=== PATIENT | female | born 1940 | race Caucasian/White ===

== ENCOUNTER 2020-02-04 14:48 | Inpatient (IN) | payer MEDICARE, OTHER ==
[~2020-02-04 14:48] MED LIST: Iopamidol-370 76% 500 ML 1 ML ONE
[2020-02-04 15:50] LABS: Bacteria/HPF None Seen HPF (None Seen); Bilirubin Negative (Negative); Blood, Urine Trace (Negative); Clarity Clear (Clear); Glucose, Urine (Dipstick) Normal (Negative); Leukocyte Negative Leu/uL (Negative); Nitrite Negative (Negative); Protein, Urine (Dipstick) Negative (Neg-Trace); RBC/HPF 0-3 HPF (0-3); Squamous Epithelial None Seen HPF (0-3); Urobilinogen Normal mg/dL (Less than 2); WBC/HPF 0-3 HPF (0-3)
[2020-02-04 15:50] LABS: #Basophils 0.1 thou/uL (0.0-0.2); #Lymphocytes 3.6 thou/uL (1.20-3.40); #Monocytes 1.2 thou/uL (0.11-0.59); #Neutrophils 12.1 thou/uL (1.40-6.50); %Basophils 0.4 % (0.0-1.0); %Lymphocytes 21.2 % (21.0-51.0); %Monocytes 7.3 % (0.0-10.0); %Neutrophils 71.1 % (42.0-75.0); Hemoglobin 13.1 g/dL (12.0-16.0); Mean Corpuscular HGB CONC 32.1 g/dL (32.0-36.0); Mean Corpuscular Hemoglobin 30.3 pg (27.0-31.0); Mean Corpuscular Volume 94.4 fL (78.0-98.0); Mean Platelet Volume 8.3 fL (7.4-10.4); Platelet Count 195 thou/uL (130-400); RBC Distribution Width 13.1 % (11.5-14.5); Red Blood Cell (RBC) Count 4.31 mill/uL (4.20-5.40)
[2020-02-04 16:11] LABS: ALT (SGPT) 13 U/L (8-55); AST (SGOT) 18 U/L (5-34); Albumin 4.3 g/dL (3.4-4.8); Alkaline Phosphatase 93 U/L (40-110); Anion Gap 11 mmol/L (10-20); BUN (Urea Nitrogen) 19 mg/dL (9.8-20.1); Bilirubin, Total 0.6 mg/dL (0.2-1.2); Calc. Creatinine Clearance 0 mL/min (70-130); Calcium 9.6 mg/dL (7.8-10.44); Carbon Dioxide 27 mmol/L (23-31); Chloride 104 mmol/L (98-107); Estimated GFR-MDRD 58; Globulin 2.6 g/dL (2.4-3.5); Glucose 86 mg/dL (83-110); Lipase 17 U/L (8-78); Protein, Total 6.9 g/dL (6.0-8.3); Sodium 138 mmol/L (136-145)
[2020-02-04] MEDS ORDERED: Acetaminophen 325 MG TAB PO PRN (16:26)
[2020-02-04] MEDS ORDERED: Ondansetron PF 4 MG/2 ML Vial IVP PRN (16:26)
[2020-02-04] MEDS ORDERED: Guaifenesin DM 100-10/5 ML UDCUP PO PRN (16:26)
[2020-02-04] MEDS ORDERED: Sodium Chloride 0.9% 1,000 ML IV SCH (16:30)
[2020-02-04] MEDS ORDERED: Morphine 4 MG/ML VIAL ONE (16:35)
--- NOTE | 2020-02-04 17:43 | HP ---
REASON FOR ADMISSION: GI bleed, possible diverticulitis. HISTORY OF PRESENTING ILLNESS: The patient gives history of having abdominal colic off and on in the left upper and lower quadrant areas from last 2 days. She had one episode of akil blood in the stool yesterday and today, she had another episode of dark blood in the stool. She had gone to Urgent Care yesterday and saw Dr. Tamika Solis. She had a COVID-19 PCR tested, the results of which is not available at present. The patient has chronic cough, but no new symptoms of expectoration or fever. She has had prior colonoscopy done by Dr. Canales 5 years back, where she was found to have had polyps. No complaints of chest pain, palpitation, PND, or orthopnea. She normally ambulates by herself. PAST MEDICAL AND SURGICAL HISTORY: History of spastic colon, possible diverticulitis in the past, dyslipidemia, left ovarian cancer with hysterectomy and bilateral oophorectomy, appendectomy, and tonsillectomy. CURRENT MEDICATIONS: The patient is on cyclobenzaprine 10 mg p.o. daily p.r.n., lovastatin 40 mg p.o. daily, dicyclomine 10 mg twice daily p.r.n., calcium with vitamin D one tablet daily, Protonix 40 mg daily, and citalopram 10 mg daily. ALLERGIES: NO KNOWN DRUG ALLERGIES. PERSONAL HISTORY: Does not abuse alcohol or drugs. No history of smoking. FAMILY HISTORY: Father of lung cancer. Mother has had history of CVA and pacemaker. CODE STATUS: Full. Power of shingle trimmer is her daughter, Ms. Aurora Ruvalcaba. REVIEW OF SYSTEMS: CONSTITUTIONAL: Negative for weight loss or gain, ability to conduct usual activities. SKIN: Negative for rash, itching. EYES: Negative for double vision, pain. ENT/MOUTH: Negative for nose bleeding, neck stiffness, pain, tenderness. CARDIOVASCULAR: Negative for palpitations, dyspnea on exertion, orthopnea. RESPIRATORY: Negative for shortness of breath, wheezing, cough, hemoptysis, fever or night sweats. GASTROINTESTINAL: Negative for poor appetite, abdominal pain, heartburn, nausea, vomiting, constipation, or diarrhea. GENITOURINARY: Negative for urgency, frequency, dysuria, nocturia. MUSCULOSKELETAL: Negative for pain, swelling. NEUROLOGIC/PSYCHIATRIC: Negative for anxiety, depression. ALLERGY/IMMUNOLOGIC: Negative for skin rash, bleeding tendency. PHYSICAL EXAMINATION: GENERAL: The patient is a 79-year-old female, who is currently not in any acute distress. VITAL SIGNS: Blood pressure 124/70, pulse 90 per minute, respiratory rate 18 per minute, temperature 98.5 degrees Fahrenheit, and saturating 95% on room air. NECK: Supple. No elevated JVD. HEENT: Eyes; extraocular muscles are intact. Pupils reacting to light. Oral cavity, mucous membranes are dry. No exudates or congestion. CARDIOVASCULAR: S1 and S2 heard, regular rhythm. RESPIRATORY: Air entry 1+ bilateral. No rales or rhonchi. ABDOMEN: Soft. Bowel sounds heard. Mild tenderness on deep palpation in the left lower quadrant and left upper quadrant. No rigidity or guarding. EXTREMITIES: No peripheral edema or calf tenderness. VASCULAR: Peripheral pulses 1+ bilateral. No ischemic ulcerations or gangrene. CENTRAL NERVOUS SYSTEM: No gross focal motor deficits noted. The patient is alert, awake, and oriented well. PSYCHIATRIC: The patient's mood is euthymic. No hallucinations or delusions. LABORATORY DATA: White count of 17, hemoglobin and hematocrit of 13 and 40, platelet count 195, MCV is 94 with 71% neutrophils. Electrolytes stable. BUN 19, creatinine 0.9, and serum glucose 86. Liver enzymes within normal limits. Albumin is 4.3. Stool occult blood is positive. CLINICAL IMPRESSION AND PLAN: The patient will be admitted to medical floor for 2 episodes of GI bleed with abdominal colic, likely diverticulitis. We will keep her on clear liquid diet. Repeat blood work in the morning. She will be on Protonix 40 mg IV q.12 hourly and we will also add ciprofloxacin and Flagyl. Stool studies including C diff and cultures will be obtained. We will obtain consultation with Dr. Roman, who is on-call for GI. We will continue her citalopram, Flexeril, and lovastatin as before. Job ID: [id number]
[2020-02-04 18:01] VITALS: BMI 18.8
[2020-02-04] MEDS: Pantoprazole 40 MG VIAL IVP SCH (18:11)
--- NOTE | 2020-02-04 19:38 | CT ---
CT ABDOMEN AND PELVIS 02/04/20 COMPARISON: None. HISTORY: Diverticulitis. GI bleeding, abdominal pain. TECHNIQUE: Axial CT imaging at 5 mm intervals from lung bases through pubic symphysis with oral contrast, with a nd without IV contrast. Coronal and sagittal reformatted imaging obtained. FINDINGS: The imaged lung bases appear grossly unremarkable. No free intraperitoneal air. Noncontrast enhanced CT imaging demonstrates no evidence for nephrolithiasis. The gallbladder appears grossly unremarkable. The liver, partially imaged spleen, the pancreas, the a drenal glands, and bilateral kidneys demonstrate no acute findings. Scattered postoperative clips are noted within the lower abdomen/pelvis. There is diverticulosis of the sigmoid colon without evidence for diverticulitis. There is a focal a jonathan of bowel wall thickening involving the colon within the descending colon just distal to the splen ic flexure. The inflamed and thick walled colon in this region measures 8 cm in length. No associated obstruction or abscess. There is scattered atherosclerotic calcification of the abdominal aorta and its branches. No lymphadenopathy is seen within the abdomen or pelvis. Review of the osseous structures demonstrates multilevel lower lumbar spine facet hypertrophy. Mild a nterolisthesis of L4 on L5 noted measuring in the 5 mm range. No worrisome lytic or blastic bone lesi on. IMPRESSION: There is a segment of thick walled colon within the proximal ascending colon with adjacent inflammato ry fat stranding suggesting a focal area of colitis. Underlying mass lesion cannot be excluded and th us, follow-up direct visualization with colonoscopy following resolution of the acute symptoms is adv ised. No evidence for free intraperitoneal air, bowel obstruction, or abscess formation. POS: [facility]
[2020-02-04] MEDS: Atorvastatin Calcium 10 MG TAB PO SCH (21:42)
[2020-02-04] MEDS: Cyclobenzaprine 10 MG TAB PO SCH (21:42)
[2020-02-04] MEDS: Dicyclomine 10 MG CAP PO SCH (21:42)
[2020-02-04] MEDS: metroNIDAZOLE 500 MG in Premix Bag 1 BAG IVPB SCH (22:36)
[2020-02-04] MEDS ORDERED: Morphine 2 MG/ML SYRINGE SLOW IVP PRN (23:40)
[2020-02-05] MEDS: Pantoprazole 40 MG VIAL IVP SCH ×2 (05:21→16:43)
[2020-02-05 05:24] LABS: #Basophils 0.1 thou/uL (0.0-0.2); #Lymphocytes 2.4 thou/uL (1.20-3.40); #Neutrophils 7.4 thou/uL (1.40-6.50); %Basophils 0.7 % (0.0-1.0); %Eosinophils 0.1 % (0.0-10.0); %Lymphocytes 21.9 % (21.0-51.0); %Monocytes 8.9 % (0.0-10.0); %Neutrophils 68.5 % (42.0-75.0); Hemoglobin 11.1 g/dL (12.0-16.0); Mean Corpuscular HGB CONC 31.8 g/dL (32.0-36.0); Mean Corpuscular Hemoglobin 29.9 pg (27.0-31.0); Mean Platelet Volume 8.5 fL (7.4-10.4); Platelet Count 167 thou/uL (130-400); RBC Distribution Width 12.9 % (11.5-14.5); Red Blood Cell (RBC) Count 3.69 mill/uL (4.20-5.40); White Blood Cell (WBC) Count 10.8 thou/uL (4.8-10.8)
[2020-02-05] MEDS: metroNIDAZOLE 500 MG in Premix Bag 1 BAG IVPB SCH ×3 (05:24→22:22)
[2020-02-05 05:35] LABS: Anion Gap 10 mmol/L (10-20); BUN (Urea Nitrogen) 13 mg/dL (9.8-20.1); Calc. Creatinine Clearance 46 mL/min (70-130); Calcium 8.7 mg/dL (7.8-10.44); Carbon Dioxide 25 mmol/L (23-31); Chloride 105 mmol/L (98-107); Estimated GFR-MDRD 74; Glucose 92 mg/dL (83-110); Potassium 4.1 mmol/L (3.5-5.1); Sodium 136 mmol/L (136-145)
[2020-02-05] MEDS ORDERED: Sodium Chloride 0.9% 1,000 ML IV SCH (06:15)
[2020-02-05] MEDS ORDERED: Prevnar 13-Val Conj/PF 0.5 ML SYRINGE IM ONE (09:00)
[2020-02-05] MEDS: Escitalopram Oxalate 10 mg Tablet PO SCH (09:18)
[2020-02-05] MEDS: Dicyclomine 10 MG CAP PO SCH ×2 (09:19→21:33)
--- NOTE | 2020-02-05 11:38 | PDOC.HOSPP ---
- Subjective Encounter Date: 02/05/20 Encounter Time: 11:15 Subjective: has mild abd pain in left upper quadrant, no nausea is tolerating liq diet no cough or expectoration, no fever - Objective Vital Signs & Weight: Vital Signs (12 hours) Temp Pulse Resp BP BP Pulse Ox 02/05/20 09:42 97.6 F 68 18 96/68 96 02/05/20 08:00 63 101/50 L 02/05/20 07:05 70 88/53 L 02/05/20 05:55 72 93/57 L 02/05/20 05:41 97.8 F 69 16 87/55 L 96 02/05/20 02:15 97.9 F 75 16 93/54 L 96 Weight Weight 106 lb I&O: 02/04/20 02/05/20 02/06/20 06:59 06:59 06:59 Intake Total 2000 Output Total 900 Balance 1100 Result Diagrams: 02/05/20 04:58 02/05/20 04:58 Hospitalist ROS - Medication Medications: Active Medications Generic Name Dose Route Start Last Admin Trade Name Daydayq PRN Reason Stop Dose Admin Atorvastatin Calcium 10 mg 02/04/20 21:00 02/04/20 21:42 Lipitor PO 10 mg HS LISA Administration Cyclobenzaprine HCl 10 mg 02/04/20 21:00 02/04/20 21:42 Flexeril PO 10 mg HS LISA Administration Dicyclomine HCl 10 mg 02/04/20 21:00 02/05/20 09:19 Bentyl PO 10 mg BID LISA Administration Escitalopram Oxalate 10 mg 02/05/20 09:00 02/05/20 09:18 Lexapro PO 10 mg DAILY LISA Administration Ciprofloxacin/Dextrose 400 mg/ 200 mls @ 200 mls/hr 02/04/20 21:00 02/05/20 09:18 Device IVPB 200 mls Q12HR LISA Administration Metronidazole 500 mg/ Device 100 mls @ 100 mls/hr 02/04/20 22:00 02/05/20 05: 24 IVPB 100 mls Q8HR LISA Administration Sodium Chloride 1,000 mls @ 50 mls/hr 02/04/20 16:30 02/04/20 18:10 Normal Saline 0.9% IV 02/05/20 12:29 1,000 mls .Q20H LISA Administration Morphine Sulfate 2 mg 02/04/20 23:40 02/05/20 00:24 Morphine SLOW IVP 2 mg Q4H PRN Administration Moderate Pain (4-6) Pantoprazole Sodium 40 mg 02/04/20 16:30 02/05/20 05:21 Protonix IVP 40 mg Q12H LISA Administration - Exam General Appearance: awake alert Eye: PERRL, anicteric sclera ENT: no oropharyngeal lesions, moist mucosa Neck: supple, no JVD Heart: RRR, no murmur Respiratory: no wheezes, no rales Gastrointestinal: soft, non-distended, normal bowel sounds, no guarding, no rigidity Extremities: no cyanosis, no edema Neurological: cranial nerve grossly intact, no focal deficits Psychiatric: normal affect, A&O x 3 Hosp A/P (1) Acute colitis Code(s): K52.9 - NONINFECTIVE GASTROENTERITIS AND COLITIS, UNSPECIFIED Status : Acute (2) GI bleed Code(s): K92.2 - GASTROINTESTINAL HEMORRHAGE, UNSPECIFIED Status: Acute Qualifiers: GI bleed type/associated pathology: unspecified gastrointestinal hemorrhage type Qualified Code(s): K92.2 - Gastrointestinal hemorrhage, unspecified (3) Dyslipidemia Code(s): E78.5 - HYPERLIPIDEMIA, UNSPECIFIED Status: Chronic - Plan Hb around 11g, abd pain is better no further bm after hospitalization gentle iv fluids cipro, flagyl, await stool studies continue liq diet covid 19 swab was redone at 2 am, prior test was done on unable to track the results per staff
[2020-02-05 15:23] LABS: SARS-CoV-2 MS2 Positive; SARS-CoV-2 N Gene Negative; SARS-CoV-2 S Gene Negative; SARS-CoV-2 orf1ab Negative
--- NOTE | 2020-02-05 17:40 | CON ---
DATE OF CONSULTATION: 02/05/2020 REASON FOR CONSULTATION: Abdominal pain and hematochezia. HISTORY OF PRESENT ILLNESS: Destiny Hernandes is a very pleasant 79-year-old female, who came to the ER yesterday with abdominal pain over the left colon area and also hematochezia. The patient was known to have diverticular disease from before. The patient had [place] Dr. [place]elle [place] 6 years [place] and has had a colonoscopy. The patient had no colon polyps from before. The patient does have constipation every now and then and does strain during bowel movement. When she was having stool, she passed small amount of fresh blood on Thursday. She had another episode on Thursday and the stool was actually lot more bloody and it was dark blood. She has also had some abdominal pain over the left colon area. She had no fever or chills. She had no nausea and no vomiting. The patient came to the ER because of abdominal pain and also hematochezia. She had a CBC done in the ER, which really showed normal hemogram. In the ER, she had a CBC with a WBC count of 17,000, hemoglobin 13.1, and hematocrit 40.7. The patient denies any coughing, any dyspnea, fever or chills. The patient had a COVID testing done yesterday and she is in the COVID unit. She is on clear liquid diet. The patient has had no bowel movement since admission. Her blood count did drop down slightly from 13.1 to 11.1. She had no other relevant history. ALLERGIES: NO DRUG ALLERGIES. SOCIAL HISTORY: The patient does not smoke or drink alcohol. MEDICAL ILLNESSES: 1. Ovarian cancer, status post hysterectomy. She had a complete hysterectomy more than 10 years ago in [place]. 2. Appendectomy. 3. Tonsillectomy. 4. IBS. 5. History of diverticular disease. No history of hypertension, heart disease, or lung disease. No history of diabetes. MEDICATIONS: At the time of admission include, 1. Cyclobenzaprine 10 mg p.r.n. 2. Lovastatin 40 once a day. 3. Dicyclomine 10 mg p.o. twice a day. 4. She is also taking calcium. 5. Vitamin D. 6. Protonix. 7. Citalopram. FAMILY HISTORY: Father of lung cancer. Her daughter has breast cancer. REVIEW OF SYSTEMS: Ten-point system review: CONSTITUTIONAL: No history of any weight loss. No history of fever or chills. No history of any change in exercise tolerance. HEAD: No chronic headache. EYES: No diplopia. No impaired vision. EARS: No hearing loss. No bleeding. NOSE: No nose bleed. No discharge. THROAT: No sore throat. No dysphagia. NECK: No pain, stiffness, or limitation of movement. LUNGS: No chronic coughing. No hemoptysis. No dyspnea. CARDIOVASCULAR SYSTEM: No chest pain. No dyspnea, orthopnea, PND, or palpitation. GASTROINTESTINAL: As in history of present illness. GENITOURINARY: No dysuria, hematuria, or frequent urination. MUSCULOSKELETAL: Not known. NEUROLOGIC: Not known. ENDOCRINE: Not known. HEMATOLOGIC: Not known. NEUROPSYCHIATRY: History of anxiety. PHYSICAL EXAMINATION: GENERAL: She appears comfortable, in no acute distress. She is afebrile. She is thin built. VITAL SIGNS: Temperature 96.3 Fahrenheit, pulse is 67, blood pressure 131/72. HEENT: Conjunctivae are clear. NECK: Supple. No adenitis or thyromegaly noted. CARDIOVASCULAR SYSTEM: First and second heart sounds heard. LUNGS: Clear to auscultation. ABDOMEN: Soft. Abdomen is nondistended. Abdomen is minimally tender over the left lower quadrant and left lumbar area. There is no rebound or guarding. Bowel sounds are normal. LABORATORY DATA: Initially, she had leukocytosis to around 17,000, but today, it has been 10,000; hemoglobin today 11.1; hematocrit 34.7; polymorphs 68; lymphocytes 21; platelet count is 167,000. Chemistry panel shows normal lytes, glucose 86, calcium 9.6, bilirubin 0.6, AST 18, ALT 13, alkaline phosphatase 93, albumin is 4.3. An abdominal CAT scan shows sigmoid diverticula and also thickening of the descending colon and ascending colon area. CLINICAL IMPRESSION: 1. Gastrointestinal bleeding appears to be most likely from diverticula. She does have mild tenderness over the left lower quadrant. She has no guarding or rigidity. The bleeding is most likely from diverticula as the bleeding initially was bright red blood and subsequently dark color. The second time she passed the stool was most likely the ones left in the colon, which could be dark appearing. 2. History of genitourinary cancer, status post complete hysterectomy. 3. Diverticular disease. 4. Hyperlipidemia. 5. Irritable bowel syndrome. RECOMMENDATIONS: 1. Await the COVID testing done today. 2. If the COVID test comes negative, we will plan for an EGD and colonoscopy tomorrow. Job ID: [id number]
[2020-02-05] MEDS: Cyclobenzaprine 10 MG TAB PO SCH (21:32)
[2020-02-05] MEDS: Atorvastatin Calcium 10 MG TAB PO SCH (21:33)
[2020-02-06] MEDS ORDERED: GoLYTELY 4,000 ml Bottle PO SCH (05:00)
[2020-02-06] MEDS: Pantoprazole 40 MG VIAL IVP SCH (05:11)
[2020-02-06] MEDS: metroNIDAZOLE 500 MG in Premix Bag 1 BAG IVPB SCH ×2 (05:11→14:19)
[2020-02-06] MEDS: Dicyclomine 10 MG CAP PO SCH ×2 (07:59→20:25)
[2020-02-06] MEDS: Escitalopram Oxalate 10 mg Tablet PO SCH (07:59)
[2020-02-06] MEDS ORDERED: Fentanyl 100 MCG/2 ML VIAL ONE (13:05)
[2020-02-06] MEDS ORDERED: Promethazine HCl 25 MG/ML VIAL IM PRN (13:21)
[2020-02-06] MEDS ORDERED: Ondansetron HCl/PF 4 MG/2 ML Vial IVP PRN (13:21)
[2020-02-06] MEDS ORDERED: Promethazine HCl 25 MG/ML VIAL SLOW IVP PRN (13:21)
[2020-02-06] MEDS ORDERED: PROPOFOL 200 MG/20 ML VIAL ONE (13:44)
--- NOTE | 2020-02-06 14:16 | OP ---
DATE OF PROCEDURE: 02/06/2020 [employer] MANAGER SURGEON: None. PROCEDURES PERFORMED: 1. Esophagogastroduodenoscopy, diagnostic. 2. Colonoscopy with biopsies. INDICATION: 1. GI bleeding. 2. Acute blood loss anemia. MEDICATIONS: See Anesthesia record. FINDINGS: After discussion of the risks, benefits, and alternatives of the procedure, informed consent was obtained and witnessed. Pre-endoscopic cardiopulmonary examination was satisfactory. Time-out was performed before sedation was achieved. Sedation was achieved with Anesthesia assistance in the Endoscopy Unit. A Pentax adult upper endoscope was placed into the oropharynx and passed through the cricopharyngeus under direct visualization. The esophageal mucosa appeared normal with a normal-appearing Z-line. The endoscope was advanced into the stomach. Forward and retroflexed views of the entire gastric mucosa were obtained. The gastric mucosa appeared normal. The endoscope was advanced through the pylorus and into the first and second portions of the duodenum, which also appeared normal. The upper endoscope was completely withdrawn and the patient was repositioned. Digital rectal exam was performed, which demonstrated some external hemorrhoids. A Pentax adult colonoscope was inserted into the anus and passed forward to the cecum in the usual fashion. The cecal base was identified by the appendiceal orifice as well as the ileocecal valve. The terminal ileum was not intubated. The colonoscope was slowly withdrawn in a gradual and circumferential manner with careful examination of the entire colonic mucosa. The quality of the prep was good. There was no evidence of any old blood or active bleeding in the colon. In the region of the splenic flexure and descending colon, there was a 20-cm segment of colitis. This was characterized by multiple shallow ulcerations with edema and erythema surrounding, on what appears to be the antimesenteric side of the colon, all consistent with likely resolving ischemic colitis. Biopsies were obtained from this area for histology. The remainder of the colonic mucosa appeared completely normal. There was diverticulosis in the sigmoid colon. The colon was tortuous. Internal hemorrhoids were demonstrated on careful forward view in the rectum. The colonoscope was completely withdrawn and the patient allowed to recover. The patient tolerated the procedure well. There were no immediate postprocedure complications. IMPRESSION: 1. Normal EGD. 2. Focal colitis with shallow healing ulcerations involving the splenic flexure and descending colon, about a 20-cm segment of colon involved, likely representing resolving ischemic colitis. Biopsied for histology. 3. Sigmoid diverticulosis. 4. Internal and external hemorrhoids. RECOMMENDATION: 1. Advance diet. 2. Continue supportive care. 3. Follow up results on colon biopsies. Anticipate continued symptomatic improvement with complete resolution of symptoms within the next 5 to 7 days. Job ID: [id number]
--- NOTE | 2020-02-06 15:39 | PDOC.HOSPP ---
- Subjective Encounter Date: 02/06/20 Encounter Time: 11:30 Subjective: no sob or nausea still has mild abd dyscomfort - Objective Vital Signs & Weight: Vital Signs (12 hours) Temp Pulse Resp BP BP Pulse Ox 02/06/20 14:11 97.5 F L 68 20 132/78 99 02/06/20 11:59 97.3 F L 68 20 134/75 99 02/06/20 07:56 97.4 F L 70 20 155/81 H 99 02/06/20 04:00 97.8 F 67 16 120/65 95 Weight Admit Weight 106 lb Weight 106 lb I&O: 02/05/20 02/06/20 02/07/20 06:59 06:59 06:59 Intake Total 2000 400 Output Total 900 Balance 1100 400 Result Diagrams: 02/05/20 04:58 02/05/20 04:58 Hospitalist ROS - Medication Medications: Active Medications Generic Name Dose Route Start Last Admin Trade Name Freq PRN Reason Stop Dose Admin Atorvastatin Calcium 10 mg 02/04/20 21:00 02/05/20 21:33 Lipitor PO 10 mg HS LISA Administration Cyclobenzaprine HCl 10 mg 02/04/20 21:00 02/05/20 21:32 Flexeril PO 10 mg HS LISA Administration Dicyclomine HCl 10 mg 02/04/20 21:00 02/06/20 07:59 Bentyl PO 10 mg BID LISA Administration Escitalopram Oxalate 10 mg 02/05/20 09:00 02/06/20 07:59 Lexapro PO 10 mg DAILY LISA Administration Ciprofloxacin/Dextrose 400 mg/ 200 mls @ 200 mls/hr 02/04/20 21:00 02/06/20 07:59 Device IVPB 200 mls Q12HR LISA Administration Metronidazole 500 mg/ Device 100 mls @ 100 mls/hr 02/04/20 22:00 02/06/20 14: 19 IVPB 100 mls Q8HR LISA Administration Morphine Sulfate 2 mg 02/04/20 23:40 02/05/20 00:24 Morphine SLOW IVP 2 mg Q4H PRN Administration Moderate Pain (4-6) Pantoprazole Sodium 40 mg 02/04/20 16:30 02/06/20 05:11 Protonix IVP 40 mg Q12H LISA Administration - Exam General Appearance: awake alert Eye: PERRL, anicteric sclera ENT: no oropharyngeal lesions, moist mucosa Neck: supple, no JVD Heart: RRR, no murmur Respiratory: no wheezes, no rales Gastrointestinal: soft, non-distended, normal bowel sounds, no guarding, no rigidity Extremities: no cyanosis, no edema Neurological: cranial nerve grossly intact, no focal deficits Psychiatric: normal affect, A&O x 3 Hosp A/P (1) Ischemic colitis Code(s): K55.9 - VASCULAR DISORDER OF INTESTINE, UNSPECIFIED Status: Acute (2) GI bleed Code(s): K92.2 - GASTROINTESTINAL HEMORRHAGE, UNSPECIFIED Status: Acute Qualifiers: GI bleed type/associated pathology: unspecified gastrointestinal hemorrhage type Qualified Code(s): K92.2 - Gastrointestinal hemorrhage, unspecified (3) Dyslipidemia Code(s): E78.5 - HYPERLIPIDEMIA, UNSPECIFIED Status: Chronic - Plan Hb stable, abd pain is better gentle iv fluids will dc cipro, flagyl, stool studies are -ve for infectious etiology solid diet covid 19 swab was redone at 2 am is -ve, prior test was done on unable to track the results per staff dc plan in am
[2020-02-06] MEDS ORDERED: Sodium Chloride 0.9% 1,000 ML IV SCH (15:45)
[2020-02-06] MEDS: Atorvastatin Calcium 10 MG TAB PO SCH (20:25)
[2020-02-06] MEDS: Cyclobenzaprine 10 MG TAB PO SCH (20:25)
[2020-02-07] MEDS: Escitalopram Oxalate 10 mg Tablet PO SCH (07:59)
[2020-02-07] MEDS: Dicyclomine 10 MG CAP PO SCH (07:59)
[2020-02-07 08:37] LABS: #Lymphocytes 2.4 thou/uL (1.20-3.40); #Monocytes 0.3 thou/uL (0.11-0.59); #Neutrophils 2.2 thou/uL (1.40-6.50); %Basophils 0.9 % (0.0-1.0); %Eosinophils 0.1 % (0.0-10.0); %Lymphocytes 48.5 % (21.0-51.0); %Monocytes 5.3 % (0.0-10.0); %Neutrophils 45.1 % (42.0-75.0); Hemoglobin 11.6 g/dL (12.0-16.0); Mean Corpuscular Hemoglobin 29.8 pg (27.0-31.0); Mean Platelet Volume 8.3 fL (7.4-10.4); Platelet Count 193 thou/uL (130-400); RBC Distribution Width 12.6 % (11.5-14.5); Red Blood Cell (RBC) Count 3.89 mill/uL (4.20-5.40); White Blood Cell (WBC) Count 4.9 thou/uL (4.8-10.8)
[2020-02-07 08:42] LABS: Anion Gap 10 mmol/L (10-20); BUN (Urea Nitrogen) 6 mg/dL (9.8-20.1); Calc. Creatinine Clearance 39 mL/min (70-130); Calcium 8.9 mg/dL (7.8-10.44); Carbon Dioxide 27 mmol/L (23-31); Chloride 105 mmol/L (98-107); Estimated GFR-MDRD 61; Glucose 132 mg/dL (83-110); Potassium 3.6 mmol/L (3.5-5.1); Sodium 138 mmol/L (136-145)
[2020-02-07 13:38] VITALS: BP 159/77; TEMP 98
--- NOTE | 2020-02-07 13:38 | PRG ---
DATE OF SERVICE: 02/07/2020 SUBJECTIVE: Ms. Hernandes still has some left lower quadrant abdominal pain, but this is showing improvement. She has had no further diarrhea or any bowel movements since her colonoscopy. OBJECTIVE: VITAL SIGNS: Temperature 98.3, pulse 82, blood pressure 133/70. GENERAL: She is in no acute distress. Alert and oriented x3. LUNGS: Clear to auscultation bilaterally. HEART: Regular rate and rhythm without murmur. ABDOMEN: Soft. Minimal tenderness in left lower quadrant. Bowel sounds are present. EXTREMITIES: No lower extremity edema. LABORATORY DATA: White blood cell count 4.9, hemoglobin 11.6, platelets 193. Creatinine 0.9. IMPRESSION: Ischemic colitis. She has markedly improved clinically with rehydration. 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 RECOMMENDATIONS: 1. Primary treatment at this point will be to maintain adequate hydration and drink plenty of water. She has been on blood pressure medication at home, and we will need to continue to monitor her blood pressure to avoid dropping it too low. 2. If she has recurrent ischemic colitis in the future, then CT angiogram can be performed of the abdomen; however, this episode occurred after she had been outside in the heat of the summer on blood pressure medication and unlikely requires further diagnostic workup at this point. Job ID: [id number]
--- NOTE | 2020-02-07 16:40 | DIS ---
DATE OF ADMISSION: 02/04/2020 DATE OF DISCHARGE: 02/07/2020 DISCHARGE DISPOSITION: Home. PRIMARY DISCHARGE DIAGNOSES: Ischemic colitis and gastrointestinal bleed. SECONDARY DISCHARGE DIAGNOSES: Dyslipidemia and hypertension. PROCEDURES DONE DURING HOSPITALIZATION: CT of the abdomen and pelvis with and without contrast done on the day of admission showed a segment of thick-walled colon within the proximal ascending colon with adjacent inflammatory fat stranding suggesting a focal area of colitis. The patient had upper endoscopy and colonoscopy done on 02/06/2020, by Dr. Mk Palmer. Upper endoscopy was normal. There was focal colitis with shallow healing ulcerations involving splenic flexure and descending colon, about a 20 cm segment of colon involved, likely representing resolving ischemic colitis. This area was biopsied. The patient also had sigmoid diverticulosis. Internal and external hemorrhoids were seen. Colon biopsy revealed findings of ischemic pattern colitis. Stool for Clostridium difficile, Shiga toxin, and Campylobacter antigen assay were all negative. H and H 11 and 36, platelet count 193, MCV is 93, white count of 4.9. White count was 17 on the day of admission. Discharge BUN and creatinine are 6 and 0.9. Lipase was 17. COVID-19 PCR, negative. INPATIENT CONSULTS: Dr. Roman, Dr. Mk Palmer, and Dr. Hemanth Cox for Gastroenterology. DISCHARGE PLAN: The patient will follow up with Dr. Roman in 1 week. DISCHARGE MEDICATIONS: 1. Calcium with vitamin D one tablet daily. 2. Flexeril 10 mg p.o. at bedtime. 3. Bentyl 10 mg twice daily. 4. Vasotec 5 mg p.o. daily. 5. Citalopram 10 mg p.o. daily. 6. Lovastatin 40 mg p.o. at bedtime. 7. Protonix 40 mg twice daily. ALLERGIES: 1. ANABOLIC STEROIDS. 2. SULFA. BRIEF COURSE DURING HOSPITALIZATION: The patient initially came to ER with complaints of 2 episodes of bleeding per rectum. She also had abdominal colic in the left upper and lower quadrant areas for last 2 days. She had gone to urgent care clinic the day prior to arrival here, and a COVID-19 PCR was done, the results of which were not available on admission. In view of this, she was admitted to [facility] and has had re-swabbing done due to difficulty obtaining results. She was gently hydrated along with stool studies done. Stool studies have been negative for any infectious etiology. She was on ciprofloxacin and Flagyl in view of elevated white count on arrival. Colonoscopy and endoscopy were done by Dr. Mk Palmer. The results have described above. The endoscopy showed findings of ischemic colitis for a 20 cm segment from watershed area. Her abdominal pain and symptoms have resolved. She has not had any further bleeding per rectum. She has been ambulating and eating well prior to discharge. She is wanting to go home today. She is advised to follow up with her primary care physician in 1 week. She has a followup appointment with a physician, who has replaced her retiring physician, Dr. Althea Cardenas. She will try to call them and get an appointment in a week. Initial appointment was for February 28. Please note, I have seen and examined the patient on the day of discharge. Job ID: [id number]
== END 2020-02-07 13:35 | disposition home or self-care (01) | DRG 394 ==
LOC: ERS 14:48 → 2SW 16:24 → T4-B 02-05 18:25
PROVIDERS: ADMIT Internal Medicine; ATTEND Internal Medicine
PROC: 0DJ08ZZ Inspection of Upper Intestinal Tract, Via Natural or Artificial Opening Endoscopic (ICD-10-PCS; principal; 2020-02-06)
PROC: 0DBM8ZX Excision of Descending Colon, Via Natural or Artificial Opening Endoscopic, Diagnostic (ICD-10-PCS; 2020-02-06)
DX: K55.9 Vascular disorder of intestine, unspecified (principal); K92.2 Gastrointestinal hemorrhage, unspecified; D62 Acute posthemorrhagic anemia; K57.30 Diverticulosis of large intestine without perforation or abscess without bleeding; K64.8 Other hemorrhoids; K64.4 Residual hemorrhoidal skin tags; K58.9 Irritable bowel syndrome, unspecified; E78.5 Hyperlipidemia, unspecified; Z90.710 Acquired absence of both cervix and uterus; Z88.1 Allergy status to other antibiotic agents; Z88.2 Allergy status to sulfonamides; Z90.49 Acquired absence of other specified parts of digestive tract
CPT/HCPCS: 36415; 74178; 80048; 80053; 81003; 81015; 82274; 83690; 85025; 87045; 87046; 87186; 87324; 87427; 87449; 87635; 88305; 94760; 96374; C9113; J0744; J2270; J2704; J3010; Q9967; U0003

== ENCOUNTER 2021-02-16 10:34 | Emergency (ER) | payer MEDICARE ==
[2021-02-16] MEDS ORDERED: Ketorolac Tromethamine 30 MG/ML VIAL ONE (12:23)
== END 2021-02-16 12:54 | disposition home or self-care (01) ==
LOC: ERS 10:34
DX: M54.42 Lumbago with sciatica, left side (principal); M62.838 Other muscle spasm; E78.5 Hyperlipidemia, unspecified; I10 Essential (primary) hypertension; Z79.899 Other long term (current) drug therapy
CPT/HCPCS: 96372; 99283; J1885